=== PATIENT | female | born 1945 | race Caucasian/White ===

== ENCOUNTER 2017-06-17 18:45 | Emergency (ER) | payer MEDICARE, OTHER ==
[~2017-06-17] VITALS: Ht 170.2 cm; Wt 117.9 kg
[2017-06-17 19:44] LABS: BASOPHILS % 0.1 % (0.0-1.0); HEMATOCRIT 29.7 % (34.2-44.1); HEMOGLOBIN 9.5 g/dL (12.0-16.0); LYMPHOCYTES # (AUTO) 0.4 (1.0-3.2); LYMPHOCYTES % 5.2 % (18.0-39.1); MEAN CORPUSCULAR HEMOGLOBIN 30.4 pg (28-32); MEAN CORPUSCULAR VOLUME 94.9 fL (81-99); MONOCYTES # (AUTO) 0.3 (0.2-0.8); MONOCYTES % 4.4 % (4.4-11.3); NEUTROPHILS # (AUTO) 6.9 (2.1-6.9); NEUTROPHILS % 89.5 % (38.7-80.0); PLATELET COUNT 243 x10e3/uL (140-360); RED BLOOD COUNT 3.13 x10e6/uL (3.6-5.1); RED CELL DISTRIBUTION WIDTH 15.9 % (11.7-14.4)
[2017-06-17] MEDS ORDERED: ALBUTEROL/IPRATROPIUM 3 ML NEB NEB ONE (19:45)
[2017-06-17 20:00] LABS: ALANINE AMINOTRANSFERASE 60 IU/L (0-55); ALKALINE PHOSPHATASE 143 IU/L (40-150); ANION GAP 14.3 mmol/L (8-16); BLOOD UREA NITROGEN 11 mg/dL (7-26); BUN/CREATININE RATIO 14 (6-25); CALCIUM 8.9 mg/dL (8.4-10.2); CARBON DIOXIDE 28 mmol/L (22-29); CHLORIDE 99 mmol/L (98-107); CREATINE KINASE 36 IU/L (29-168); CREATININE, SERUM 0.79 mg/dL (0.57-1.11); EST GLOMERULAR FILTRATION RATE > 60 ML/MIN (60-); GLUCOSE 194 mg/dL (74-118); POTASSIUM 3.3 mmol/L (3.5-5.1); SODIUM 138 mmol/L (136-145)
[2017-06-17 20:06] LABS: B-TYPE NATRIURETIC PEPTIDE2 89.3 pg/mL (0-100)
[2017-06-17 20:07] LABS: TROPONIN I 0.064 ng/mL (0-0.300)
--- NOTE | 2017-06-17 20:22 | Diagnostic Imaging Report ---
Two view chest x-ray INDICATION: Shortness of breath, congestion COMPARISON: Chest x-ray 10/29/2008. FINDINGS: The heart is mildly enlarged. There is no evidence of hilar lymphadenopathy. Pulmonary vascular markings are prominent. Lung volumes are lower compared to previous exam. There is mild prominence of the pulmonary interstitium and bilateral perihilar airspace opacities. No consolidation. There is no evidence of focal consolidation or pleural effusion. Evaluation of the osseous structures demonstrates diffuse demineralization. There are healing right and left upper rib fractures. IMPRESSION: Cardiomegaly and vascular congestion. A component of pulmonary edema is suspected. Signed by: Dr. Juma Ellington MD on 06/17/2017 8:18 PM
== END 2017-06-17 22:15 | disposition left against medical advice (07) ==
LOC: ER 18:45
DX: R06.00 Dyspnea, unspecified (principal)
CPT/HCPCS: 36415; 71020; 80053; 82550; 82553; 83605; 83880; 84484; 85025; 87040; 93005; 94640

== ENCOUNTER 2017-08-23 14:45 | Emergency (ER) | payer MEDICARE, OTHER ==
[~2017-08-23] VITALS: Ht 162.6 cm; Wt 90.7 kg
--- OUTSIDE RECORDS SUMMARY | 2017-08-23 14:47 | XMS REPORT ---
Author Author [facility] Address Unknown Phone Unavailable Care Team Providers Care Hearing Screen Coordinator Name Role Phone MARILYN GALVAN Unavailable Unavailable Problems This patient has no known problems. Allergies, Adverse Reactions, Alerts This patient has no known allergies or adverse reactions. Medications This patient has no known medications. Results Test Description Test Time Test Comments Text Results Atomic Results Result Comments CHEST 2 VIEWS [place] [address] Patient Name: ROOPA ERNST MR #: [id number] : 1945 Age/Sex: 71/F Req # : [id number] Adm Physician: Ordered by: YUDY DIXON MD Report # : [id number] Location: ER Room/Bed: Procedure: [id number] DX/CHEST 2 VIEWS Exam Date: Exam Time: REPORT STATUS: Signed Two view chest x-ray INDICATION: Shortness of breath, congestion COMPARISON: Chest x-ray 10/29/2008. FINDINGS: The heart is mildly enlarged. There is no evidence of hilar lymphadenopathy. Pulmonary vascular markings are prominent. Lung volumes are lower compared to previous exam. There is mild prominence of the pulmonary interstitium and bilateral perihilar airspace opacities. No consolidation. There is no evidence of focal consolidation or pleural effusion. Evaluation of the osseous structures demonstrates diffuse demineralization. There are healing right and left upper rib fractures. IMPRESSION: Cardiomegaly and vascular congestion. A component of pulmonary edema is suspected. Signed by: Dr. Jose Ellington MD on 06/17/2017 8:18 PM Dictated By: JOSE ELLINGTON MD 17 Transcribed By: RUBIO on 06/17/172017 COPY TO: YUDY DIXON MD
--- OUTSIDE RECORDS SUMMARY | 2017-08-23 14:47 | XMS REPORT | Clinical Summary ---
Author Author [facility] Address Unknown Phone Unavailable Care Team Providers Care Hub Associate Name Role Phone Asked, Pcp PCP Unavailable Allergies Active Allergy Reactions Severity Noted Date Comments Ibuprofen 06/11/2017 Current Medications Prescription Sig. Disp. Refills Start End Date Status Date citalopram (CeleXA) 40 MG Take 40 mg by mouth Active tablet daily. diphenhydrAMINE Take 25 mg by mouth as Active (BENADRYL) 25 mg tablet needed for sleep. calcium carbonate Take 600 mg by mouth Active (OS-ALINA) 600 mg calcium daily. (1,500 mg) tablet docusate sodium (COLACE) Take 100 mg by mouth as Active 100 MG capsule needed for constipation. esomeprazole (NexIUM) 40 Take 40 mg by mouth Active MG capsule daily. fexofenadine (MICHAEL) Take 180 mg by mouth Active 180 MG tablet daily. fluoride, sodium, (SF Apply 1 application to Active 5000 PLUS) 1.1 % cream teeth daily. fluticasone-salmeterol Inhale 1 puff 2 (two) Active (ADVAIR) 250-50 mcg/dose times a day. DISKUS levothyroxine (SYNTHROID, Take 200 mcg by mouth Active LEVOXYL) 200 mcg tablet every morning. magnesium oxide 500 mg Take 1 tablet by mouth Active tablet daily. metFORMIN (GLUCOPHAGE) Take 1,000 mg by mouth 2 Active 1,000 mg tablet (two) times a day with meals. ondansetron (ZOFRAN) 8 MG Take 8 mg by mouth every Active tablet 8 (eight) hours as needed for nausea or vomiting. pioglitazone (ACTOS) 15 Take 15 mg by mouth Active MG tablet daily. potassium chloride Take 10 mEq by mouth Active (KLOR-CON M10) 10 MEQ CR daily. tablet promethazine (PHENERGAN) Take 25 mg by mouth every Active 25 MG tablet 6 (six) hours as needed for nausea or vomiting. QUEtiapine (SEROquel) 25 Take 25 mg by mouth Active MG tablet nightly. QUEtiapine XR (SEROquel Take 150 mg by mouth Active XR) 150 mg 24 hr tablet nightly. sennosides-docusate Take 1 tablet by mouth Active sodium (SENOKOT-S) 8.6-50 daily. mg per tablet traMADol (ULTRAM) 50 mg Take 50 mg by mouth every Active tablet 6 (six) hours as needed for moderate pain. triamcinolone (KENALOG) Apply 1 application Active 0.1 % cream topically 2 (two) times a day as needed. valACYclovir (VALTREX) Take 500 mg by mouth Active 500 MG tablet daily. zolpidem (AMBIEN) 10 mg Take 10 mg by mouth Active tablet nightly as needed for sleep. aspirin (ECOTRIN) 81 MG Take 81 mg by mouth Active enteric coated tablet daily. albuterol (PROAIR Inhale every 6 (six) Active HFA,PROVENTIL hours as needed for HFA,VENTOLIN HFA) 90 wheezing. mcg/actuation inhaler benzonatate (TESSALON) Take 1 capsule (100 mg 21 capsule 0 06/16/19 Active 100 MG capsule total) by mouth 3 (three) 18 times a day as needed for cough for up to 21 doses. NON FORMULARY Take 1 Dose by mouth. 06/11/19 Discontin POTASSIUM ORAL 18 ued nystatin (MYCOSTATIN) Take 5 mL by mouth 4 473 mL 0 06/16/19 100,000 unit/mL (four) times a day for 7 18 18 suspension days. Swish in mouth guaiFENesin (MUCINEX) 600 Take 1 tablet (600 mg 8 tablet 0 06/16/19 06/20/19 mg tablet extended total) by mouth 2 (two) 18 18 release 12hr times a day for 4 days. montelukast (SINGULAIR) Take 1 tablet (10 mg 30 tablet 0 06/16/19 10 mg tablet total) by mouth nightly 18 18 for 30 days. fluticasone (FLONASE) 50 2 sprays (100 mcg total) 15.8 mL 0 06/17/19 07/17/19 mcg/actuation nasal spray by Each Nare route daily 18 18 for 30 days. levoFLOXacin (LEVAQUIN) Take 1 tablet (500 mg 4 tablet 0 06/16/19 500 MG tablet total) by mouth daily for 18 18 4 days. Active Problems Problem Noted Date Dehydration 06/14/2017 Influenza 06/11/2017 Encounters Date Type Specialty Care Team Description 06/11/2017 [facility] Internal Medicine Wally Valentino MD Influenza (Primary Dx); - Encounter Abelardo Millan MD Dehydration 06/16/2017 after 08/22/2016 Family History Medical History Relation Name Comments Ovarian cancer Mother Arthritis Sister Cancer Sister Relation Name Status Comments Mother Sister Social History Tobacco Use Types Packs/Day Years Used Date Never Smoker Smokeless Tobacco: Never Used Alcohol Use Drinks/Week oz/Week Comments No socially Sex Assigned at Date Recorded Not on file Last Filed Vital Signs Vital Sign Reading Time Taken Blood Pressure 151/66 06/16/2017 10:39 AM [facility] Pulse 101 06/16/2017 11:41 AM [facility] Temperature 36.4 C (97.5 F) 06/16/2017 10:39 AM [facility] Respiratory Rate 15 06/16/2017 11:41 AM [facility] Oxygen Saturation 98% 06/16/2017 11:31 AM [facility] Inhaled Oxygen - - Concentration Weight 118 kg (260 lb) 06/11/2017 4:54 PM [facility] Height 167.6 cm (5' 6") 06/11/2017 4:54 PM [facility] Body Mass Index 41.97 06/11/2017 4:54 PM [facility] Plan of Treatment Health Maintenance Due Date Last Done Comments COLONOSCOPY 09/30/1995 MAMMOGRAM 09/30/1995 ZOSTER VACCINE 2005 PNEUMOCOCCAL 2010 POLYSACCHARIDE VACCINE AGE 65 AND OVER PNEUMOCOCCAL-13 2010 INFLUENZA VACCINE 12/22/2017 Procedures Procedure Name Priority Date/Time Associated Diagnosis Comments EEG AWAKE/DROWSY LESS Routine 06/14/2017 Results for this THAN 41 MIN 3:00 PM [facility] procedure are in the results section. ECHOCARDIOGRAM 2D Routine 06/14/2017 Results for this COMPLETE W MMODE SPECTRAL 2:15 PM [facility] procedure are in the COLOR DOPPLER ([id number]) results section. after 08/22/2016 Results * Total iron binding capacity (06/16/2017 11:24 AM) Component Value Ref Range Iron level 110 37 - 145 ug/dL Iron binding capacity 179 (L) 200 - 400 ug/dL % Saturation 61.5 (H) 15.0 - 38.0 % Specimen Performing Laboratory Plasma specimen [facility] DEPARTMENT PATHOLOGY AND [facility] [id number] [place] [address] [place] [address] * Folate level (06/16/2017 11:24 AM) Component Value Ref Range Folate 3.9 (L) 4.6 - 34.8 ng/mL Specimen Performing Laboratory Serum [facility] PATHOLOGY AND [facility] [id number] [place] [address] [place] [address] * Vitamin B12 level (06/16/2017 11:24 AM) Component Value Ref Range Vitamin B12 877 211 - 946 pg/mL Comment: Significant overlap exists between normal and deficiency states. However, most patients with deficiencies will have Serum B12 <200 pg/mL. Specimen Performing Laboratory Serum [facility] PATHOLOGY [address] [place] [address] * POC glucose (06/16/2017 11:06 AM) Only the most recent of 18 results within the time period is included. Component Value Ref Range POC glucose 292 (H) 65 - 99 mg/dL Comment: Meter ID: [id number] [employer] Specialist: Baltazar Granados Specimen Performing Laboratory [facility] DEPARTMENT PATHOLOGY AND [address] [place] [address] * XR Chest 1 Vw Portable (06/15/2017 6:25 AM) Only the most recent of 3 results within the time period is included. Specimen Performing Laboratory [facility] [address] [place] [address] Narrative Examination:XR CHEST 1 VW PORTABLE Clinical history:"SHORTNESS OF BREATH" Comparison:06/14/17 IMPRESSION: There are no new alveolar opacities within either lung.Bibasilar opacities consistent with atelectasis versus small infiltrates appear unchanged. No pneumothoraces are identified. The cardiomediastinal silhouette is unchanged. The bones of the chest are unchanged. [id number] Procedure Note Hm Interface, Radiology Results Incoming - 06/15/2017 7:32 AM B[facility]ACKER Examination: XR CHEST 1 VW PORTABLE Clinical history: "SHORTNESS OF BREATH" Comparison: 06/14/17 IMPRESSION: There are no new alveolar opacities within either lung. Bibasilar opacities consistent with atelectasis versus small infiltrates appear unchanged. No pneumothoraces are identified. The cardiomediastinal silhouette is unchanged. The bones of the chest are unchanged. [facility]-[id number] * Smear review (06/15/2017 4:24 AM) Component Value Ref Range Platelet slide review Eda adequate Anisocytosis Moderate Tear drop cells Moderate (A) Elliptocytes Occasional Specimen Performing Laboratory [facility] DEPARTMENT OF PATHOLOGY AND GENOMIC MEDICINE [address] [place] [address] * Procalcitonin (06/15/2017 4:24 AM) Component Value Ref Range Procalcitonin 0.18 (H) <=0.10 ng/mL Comment: INTERPRETIVE INFORMATION: Procalcitonin PCT greater than 2.00 ng/mL: PCT levels above 2.00 ng/mL on the first day of ICU admission represent a high risk for progression to severe sepsis and/or septic shock. PCT less than 0.50 ng/mL: PCT levels below 0.50 ng/mL on the first day of ICU admission represent a low risk for progression to severe sepsis and/or septic shock. If the PCT measurement is performed shortly after the systemic infection process has started (usually less than 6 hours), these values may still be low. As various non-infectious conditions are known to induce PCT as well, PCT levels between 0.5 ng/mL and 2.0 ng/mL should be reviewed carefully to take into account the specific clinical back-ground and condition(s) of the individual patient. Performed by [facility], [address] [place] [id number] [email or web address] Etienne Price MD - Lab. Director Specimen Performing Laboratory Serum [facility] [address] [place] [address] * Estimated GFR (06/15/2017 4:24 AM) Only the most recent of 5 results within the time period is included. Component Value Ref Range GFR Non Af Amer 82 mL/min/1.73 m2 GFR Af Amer >90 mL/min/1.73 m2 Comment: Chronic kidney disease: <60 mL/min/1.73m2 Kidney failure: <15 mL/min/1.73m2 The estimated GFR is calculated from the IDMS-traceable Modification of Diet in Renal Disease Equation. The accuracy of the calculation is poor when the creatinine is normal. Calculated values >90 mL/min/1.73m2 are not reported. This equation has not been validated in children (<18 years), women, the elderly (>70 years), or ethnic groups other than Caucasians and Americans. Specimen Performing Laboratory Plasma specimen [facility] OF PATHOLOGY AND GENOMIC MEDICINE [address] [place] [address] * CBC with platelet and differential (06/15/2017 4:24 AM) Only the most recent of 5 results within the time period is included. Component Value Ref Range WBC 5.20 4.50 - 11.00 k/uL RBC 2.88 (L) 4.20 - 5.50 m/uL HGB 8.8 (L) 12.0 - 16.0 g/dL HCT 26.4 (L) 37.0 - 47.0 % MCV 91.7 82.0 - 100.0 fL MCH 30.6 27.0 - 34.0 pg MCHC 33.3 31.0 - 37.0 g/dL RDW - SD 51.3 37.0 - 55.0 fL MPV 11.5 8.8 - 13.2 fL Platelet count 171 150 - 400 k/uL Nucleated RBC 0.00 /100 WBC Neutrophils 90.7 (H) 39.0 - 69.0 % Lymphocytes 4.6 (L) 25.0 - 45.0 % Monocytes 3.5 0.0 - 10.0 % Eosinophils 0.0 0.0 - 5.0 % Basophils 0.0 0.0 - 1.0 % Immature granulocytes 1.2 (H)Comment: "Immature granulocytes" 0.0 - 1.0 % (promyelocytes, myelocytes, metamyelocytes) Specimen Performing Laboratory Blood [facility] DEPARTMENT OF PATHOLOGY AND GENOMIC MEDICINE [address] [place] [address] * Basic metabolic panel (06/15/2017 4:24 AM) Only the most recent of 4 results within the time period is included. Component Value Ref Range Sodium 132 (L) 135 - 148 mEq/L Potassium 3.8 3.5 - 5.0 mEq/L Chloride 93 (L) 98 - 112 mEq/L CO2 25 24 - 31 mEq/L Anion gap 14 7 - 15 mEq/L Comment: Starting from August , anion gap calculation no longer incorporates potassium. Please note the change. BUN 12 8 - 23 mg/dL Creatinine 0.7 0.5 - 0.9 mg/dL Glucose 236 (H) 65 - 99 mg/dL Calcium 8.6 (L) 8.8 - 10.2 mg/dL Specimen Performing Laboratory Plasma specimen [facility] DEPARTMENT OF PATHOLOGY AND GENOMIC MEDICINE [address] [place] [address] * EEG (routine) (06/14/2017 3:00 PM) Specimen Performing Laboratory [facility] DEPARTMENT OF PATHOLOGY AND GENOMIC MEDICINE [address] [place] [address] Narrative ROUTINE EEG REPORT Patient Name: Roopa Gillespie Date of : 1945 Gender: female Date of Procedure: 06/14/17 Indication deiminished LOC and intontinence of urine and feces Technical Summary Technique:Modified international 10/20 system of EEG electrode placement was used. Awake Recording: posterior dominant rhythm -7-8 hz low amplitude and disorganized w/ intermittent higher amplitude slow waves in the theta frecquency interrupting the rhythm Anterior beta frequencies are 22-28 hz <10mV present but often obstructed by muscle activity Intermittent slowing is seen several times during this EEG 4-7 hz overriding the normal rythms . No seizures, sharp waves or focal dysfunction is captured Photic Stimulation: no abnormal driving is captured Impression Abnormal level 1 Mild encephalopathy w/ posteriod background slowing Mild diffuse encephalopathy No evidence of seizure ICD10 Code/Diagnosis: g40 . * Echocardiogram complete w contrast and 3D if needed (06/14/2017 2:15 PM) Component Value Ref Range AoV Area, Vmax 1.72 cm2 AoV Area, VTI 2.02 cm2 AoV Mean PG 6.31 mmHg AoV Peak PG 14.41 mmHg AoV Vmax 1.90 m/s AoV VTI 0.28 m IVS,d 1.24 (A) 0.6 - 1.2 cm LV,d 4.81 cm LV EF,A2C 46.04 % LV EF,A4C 62.99 % LV EF,BP 55.24 % Moses Watton,d A2C 7.71 cm Moses Watton,d A4C 7.83 cm Moses Watton,s A2C 6.41 cm Moses Watton,s A4C 6.56 cm LV,s 3.42 cm LV SV,A2C 24.80 % LV SV,A4C 44.25 % LV Vol,d A2C 53.86 mL LV Vol,d A4C 70.26 ml LV Vol,d BP 61.78 ml LV Vol,s A2C 29.06 mL LV Vol,s A4C 26.00 ml LV Vol,s BP 27.65 nl LVOT Diam,S 1.95 cm LVOT Vmax 1.08 m/s LVOT VTI 0.19 m LVPWD,d 0.80 cm RVSP (TR) 27.63 mmHg TR Vpeak 2.38 mm/s MV E A ratio 0.73 mmHg TR pk grad 22.63 mmHg E wave decelartion time 186.05 msec MV Peak A Blake 1.36 m/s MV valve area p 1/2 5.28 cm2 method MV Peak E Blake 0.99 m/s MV stenosis pressure 1/2 41.69 ms time AV LVOT peak gradient 4.69 mmHg RVSP 27.63 mmHg LV SYS VOL 48.14 ml LV OAKES VOL 108.11 ml LV SV Teich 2D 59.97 ml LVOT SI 25.71 ml/m2 AoV Cusp sep 1.80 AoV Vmn 1.18 IVS s 2D 1.27 LA Ao Ratio Mmode 1.41 LVOT Vmn 0.73 Pt Size 167.64 Pt Wt 117.93 Ao root annulus 3.12 cm PV AT 83.04 msec LVOT mean grad 2.49 mmHg LVPW s PLAX 1.52 cm MV Decel slope 5.34 m/s2 LA Vol MOD A4C 60.12 ml Velocity Ratio (V1/V2) 0.57 m/s EF 55.47 % E/A ratio 0.73 LVOT area 2.98 cm2 RA pressure 5.00 mmHg LA diam s 4.40 cm Aortic Root 3.10 cm DE End Oakes Grad 4.94 DE End Diat Blake 1.11 D E excurs 2.10 E f slope 0.05 E prime lat 0.10 E clifton sept 0.08 PV acc T slope 10.10 Specimen Performing Laboratory [facility] [address] [place] [address] Narrative The left ventricle chamber size is normal. Left Ventricular ejection fraction is 55 - 60%. No pericardial effusion Spectral Doppler shows impaired relaxation pattern of left ventricular diastolic filling. * Magnesium level (06/14/2017 4:30 AM) Only the most recent of 2 results within the time period is included. Component Value Ref Range Magnesium 1.6 1.6 - 2.4 mg/dL Specimen Performing Laboratory Plasma specimen [facility] DEPARTMENT OF PATHOLOGY AND GENOMIC MEDICINE [address] [place] [address] * Respiratory pathogen panel (06/12/2017 9:00 PM) Component Value Ref Range Respiratory pathogen Negative for all pathogens tested: panel Negative for Adenovirus Negative for Coronavirus HKU1 Negative for Coronavirus NL63 Negative for Coronavirus 229E Negative for Coronavirus OC43 Negative for Human Metapneumovirus Negative for Rhinovirus/Enterovirus Negative for Influenza A Negative for Influenza A/H1 Negative for Influenza A/H3 Negative for Influenza A/H1-2009 Negative for Influenza B Negative for Parainfluenza Virus 1 Negative for Parainfluenza Virus 2 Negative for Parainfluenza Virus 3 Negative for Parainfluenza Virus 4 Negative for Respiratory Syncytial Virus Negative for Bordetella pertussis Negative for Chlamydophila pneumoniae Negative for Mycoplasma pneumoniae This real-time PCR assay detects the presence of nucleic acids (RNA or DNA) for the respiratory pathogens listed. A result of "Not-detected" does not exclude the possibility of the presence of one or more pathogens at concentrations less than the detectable limits of the assay. Comment: Specimen Information Specimen Source: Nares Specimen Site: Right Specimen Performing Laboratory Nares - Right [facility] DEPARTMENT OF PATHOLOGY AND GENOMIC MEDICINE [address] [place] [address] * Hemoglobin A1c (06/12/2017 1:35 PM) Component Value Ref Range Hemoglobin A1C 6.4 (H) 4.0 - 6.0 % Comment: Less than 6% - Goal of therapy for Type II Diabetes Less than 7%- Goal of therapy for Type I Diabetes Less than 8%- Acceptable control for Type I or Type II Diabetes Greater than 8%- Unacceptable control; action indicated. (A DA94) Specimen Performing Laboratory Blood [facility] DEPARTMENT OF PATHOLOGY AND GENOMIC MEDICINE [address] [place] [address] * ECG ED Preliminary Interpretation - NOT AN ORDER (06/12/2017 6:24 AM) Galindo Valentino MD 06/12/20176:24 AM ECG ED Preliminary Interpretation - Not an Order Performed by: WALLY VALENTINO Authorized by: WALLY VALENTINO ECG reviewed by ED Physician in the absence of a bank analyst: yes Interpretation: Interpretation: non-specific Rate: ECG rate:97 ECG rate assessment: normal Rhythm: Rhythm: sinus rhythm Conduction: Conduction: abnormal Abnormal conduction: incomplete RBBB T waves: T waves: non-specific Other findings: Other findings: prolonged qTc interval * Troponin (06/11/2017 10:55 PM) Only the most recent of 2 results within the time period is included. Component Value Ref Range Troponin <0.300 0.000 - 0.300 ng/mL Comment: 0.30 - 1.49 ng/ml May indicate increased risk of acute coronary syndrome. >=1.5 ng/ml Consistent with acute myocardial infarction. The diagnostic value of a single normal or non-diagnostic result is questionable. Serial samples at 2-6 hour intervals are required to rule out acute myocardial injury. Specimen Performing Laboratory Plasma specimen [facility] DEPARTMENT OF PATHOLOGY AND GENOMIC MEDICINE [address] [place] [address] * ECG 12 lead (06/11/2017 6:33 PM) Component Value Ref Range Ventricular rate 97 Atrial rate 97 DE interval 142 QRSD interval 110 QT interval 402 QTC interval 510 P axis 1 76 QRS axis 1 -43 T wave axis 83 EKG impression Normal sinus rhythm-Left axis deviation-Incomplete right bundle branch block-Left ventricular hypertrophy with repolarization abnormality-Prolonged QT-Abnormal ECG-No previous ECGs available- Specimen Performing Laboratory [facility] [address] [place] [address] * Partial thromboplastin time, activated (06/11/2017 6:10 PM) Component Value Ref Range PTT 30.9 23.0 - 36.0 sec Comment: PTT therapeutic range for unfractionated heparin is 61.0-112.0 seconds which corresponds to Anti-Xa 0.3-0.7 U/ml. Specimen Performing Laboratory Blood [facility] OF PATHOLOGY AND [facility] [address] [place] [address] * Prothrombin time with INR (06/11/2017 6:10 PM) Component Value Ref Range Prothrombin time 17.7 (H) 12.0 - 15.0 sec INR 1.4 Comment: The International Normalized Ratio (INR) is a therapeutic monitoring tool for patients who are stable on oral anticoagulant therapy. An INR of 2.0-3.0 is suggested for deep vein thrombosis/pulmonary embolism. Specimen Performing Laboratory Blood [facility] OF PATHOLOGY AND [facility] [address] [place] [address] * Influenza antigen (06/11/2017 6:10 PM) Component Value Ref Range Influenza antigen Positive for Influenza B antigen. (A) Comment: Specimen Information Specimen Source: Nares Specimen Site: Right Specimen Performing Laboratory Nares - Right [facility] OF PATHOLOGY AND [facility] [address] [place] [address] * Comprehensive metabolic panel (06/11/2017 6:10 PM) Component Value Ref Range Sodium 136 135 - 148 mEq/L Potassium 3.2 (L) 3.5 - 5.0 mEq/L Chloride 95 (L) 98 - 112 mEq/L CO2 26 24 - 31 mEq/L Anion gap 15 7 - 15 mEq/L Comment: Starting from August , anion gap calculation no longer incorporates potassium. Please note the change. BUN 10 8 - 23 mg/dL Creatinine 0.7 0.5 - 0.9 mg/dL Glucose 124 (H) 65 - 99 mg/dL Calcium 8.5 (L) 8.8 - 10.2 mg/dL Protein 5.7 (L) 6.3 - 8.3 g/dL Comment: [place] 4.6-7.0 g/dL 1 week 4.4-7.6 g/dL 7 months-1year 5.1-7.3 g/dL 1-2 years 5.6-7.5 g/dL >3 years 6.0-8.0 g/dL 18-150 6.3-8.3 g/dL Albumin 3.1 (L) 3.5 - 5.0 g/dL A/G ratio 1.2 0.7 - 3.8 Alkaline phosphatase 136 (H) 35 - 104 U/L AST 16 10 - 35 U/L ALT 12 5 - 50 U/L Total bilirubin 0.7 0.0 - 1.2 mg/dL Specimen Performing Laboratory Plasma specimen [facility] DEPARTMENT OF PATHOLOGY AND GENOMIC MEDICINE [address] [place] [address] * CT Head Wo Contrast (06/11/2017 5:58 PM) Specimen Performing Laboratory [facility] [address] [place] [address] Narrative EXAMINATION:CT HEAD WO CONTRAST CLINICAL HISTORY:TIA COMPARISON:None. TECHNIQUE: Noncontrast head CT performed using radiation dose reduction techniques.Technical factors are evaluated and adjusted to ensure appropriate moderation of exposure.Automated dose management technology is applied to adjust radiation exposure while achieving a diagnostic quality image. FINDINGS: No evidence of acute intracranial hemorrhage, mass, mass effect, midline shift, or acute infarct. Few areas of periventricular white matter hypoattenuation likely reflecting mild chronic microvascular ischemic changes. Ventricles and sulci are normal in appearance for patient's age.Mild arteriosclerosis of the cavernous internal carotid arteries. Basal cisterns are clear. Diffuse lytic lesions throughout the visualized calvarium. Status post bilateral lens extractions. Mild to moderate sinus inflammatory changes with possible air-fluid levels in the maxillary and sphenoid sinuses. Small right and trace left mastoid effusions. IMPRESSION: 1. No CT evidence of acute intracranial abnormality. 2. Mild to moderate sinus inflammatory changes with possible air-fluid levels in the maxillary and sphenoid sinuses. Correlate for acute sinusitis. 3. Diffuse lytic lesions throughout the calvarium and visualized osseous structures consistent with history of multiple myeloma. [id number] Procedure Note Interface, Radiology Results Incoming - 06/11/2017 6:06 PM BALL [facility]ER EXAMINATION: CT HEAD WO CONTRAST CLINICAL HISTORY: TIA COMPARISON: None. TECHNIQUE: Noncontrast head CT performed using radiation dose reduction techniques. Technical factors are evaluated and adjusted to ensure appropriate moderation of exposure. Automated dose management technology is applied to adjust radiation exposure while achieving a diagnostic quality image. FINDINGS: No evidence of acute intracranial hemorrhage, mass, mass effect, midline shift, or acute infarct. Few areas of periventricular white matter hypoattenuation likely reflecting mild chronic microvascular ischemic changes. Ventricles and sulci are normal in appearance for patient's age. Mild arteriosclerosis of the cavernous internal carotid arteries. Basal cisterns are clear. Diffuse lytic lesions throughout the visualized calvarium. Status post bilateral lens extractions. Mild to moderate sinus inflammatory changes with possible air-fluid levels in the maxillary and sphenoid sinuses. Small right and trace left mastoid effusions. IMPRESSION: 1. No CT evidence of acute intracranial abnormality. 2. Mild to moderate sinus inflammatory changes with possible air-fluid levels in the maxillary and sphenoid sinuses. Correlate for acute sinusitis. 3. Diffuse lytic lesions throughout the calvarium and visualized osseous structures consistent with history of multiple myeloma. [id number] after 08/22/2016 Insurance Payer Benefit Subscriber ID Type Phone Address Plan / Group MEDICARE MEDICARE xxxxxxxxxx [place] A [place] B AARP AARP xxxxxxxxxxx Commercial SUPPLEMENT [place] [id number]
[2017-08-23] MEDS ORDERED: ONDANSETRON HCL INJ 2 MG/ML VIAL IV STA (15:49)
[2017-08-23] MEDS ORDERED: FAMOTIDINE 20 MG/2 ML VIAL IV STA (15:49)
[2017-08-23] MEDS ORDERED: FLUCONAZOLE 200 MG/100 ML 100 ML IV ONE (16:00)
[2017-08-23] MEDS ORDERED: LOPERAMIDE HCL 2 MG CAP PO ONE (16:00)
[2017-08-23] MEDS ORDERED: SODIUM CHLORIDE 0.9% 1000ML 1,000 ML IV ONE (16:00)
[2017-08-23 16:05] LABS: BASOPHILS % 0.1 % (0.0-1.0); HEMATOCRIT 33.5 % (34.2-44.1); LYMPHOCYTES # (AUTO) 0.5 (1.0-3.2); LYMPHOCYTES % 3.6 % (18.0-39.1); MEAN CORPUSCULAR HEMOGLOBIN 30.8 pg (28-32); MEAN CORPUSCULAR HGB CONC 32.8 g/dL (31-35); MEAN CORPUSCULAR VOLUME 93.8 fL (81-99); MONOCYTES # (AUTO) 0.4 (0.2-0.8); MONOCYTES % 2.6 % (4.4-11.3); NEUTROPHILS # (AUTO) 13.4 (2.1-6.9); NEUTROPHILS % 93.1 % (38.7-80.0); PLATELET COUNT 298 x10e3/uL (140-360); RED BLOOD COUNT 3.57 x10e6/uL (3.6-5.1); RED CELL DISTRIBUTION WIDTH 22.5 % (11.7-14.4)
[2017-08-23 16:27] LABS: ALBUMIN 2.3 g/dL (3.5-5.0); ALBUMIN/GLOBULIN RATIO 0.8 (0.8-2.0); ANION GAP 23.6 mmol/L (8-16); CALCIUM 10.5 mg/dL (8.4-10.2); CREATININE, SERUM 1.13 mg/dL (0.57-1.11); MAGNESIUM 1.6 MG/DL (1.3-2.1); POTASSIUM 3.6 mmol/L (3.5-5.1)
[2017-08-23] MEDS ORDERED: TRAMADOL HCL 50 MG TAB PO ONE (16:45)
[2017-08-23] MEDS ORDERED: ONDANSETRON HCL INJ 2 MG/ML VIAL IV PRN (19:15)
[2017-08-23] MEDS: SODIUM CHLORIDE 0.9% 1000ML 1,000 ML IV SCH (19:39)
--- OUTSIDE RECORDS SUMMARY | 2017-08-23 20:08 | XMS REPORT | Clinical Summary ---
Author Author William [facility] Organization [facility] Address Unknown Phone Unavailable Care Team Providers Care Marine Electrician Name Role Phone Asked, Pcp PCP Unavailable [...] Date Type Specialty Care Team Description 06/11/2017 [facility] Internal Medicine Wally Valentino MD Influenza [...] Taken Blood Pressure 151/66 06/16/2017 10:39 AM STAPLER MACHINE Pulse 101 06/16/2017 11:41 AM STAPLER MACHINE Temperature 36.4 C (97.5 F) 06/16/2017 10:39 AM STAPLER MACHINE Respiratory Rate 15 06/16/2017 11:41 AM STAPLER MACHINE Oxygen Saturation 98% 06/16/2017 11:31 AM STAPLER MACHINE Inhaled Oxygen - - Concentration Weight 118 kg (260 lb) 06/11/2017 4:54 PM STAPLER MACHINE Height 167.6 cm (5' 6") 06/11/2017 4:54 PM STAPLER MACHINE Body Mass Index 41.97 06/11/2017 4:54 PM STAPLER MACHINE Plan of Treatment Health Maintenance Due Date Last Done Comments COLONOSCOPY 09/30/1995 MAMMOGRAM 09/30/1995 ZOSTER VACCINE 2005 PNEUMOCOCCAL 2010 POLYSACCHARIDE VACCINE AGE 65 AND OVER PNEUMOCOCCAL-13 2010 INFLUENZA VACCINE 12/22/2017 Procedures Procedure Name Priority Date/Time Associated Diagnosis Comments EEG AWAKE/DROWSY LESS Routine 06/14/2017 Results for this THAN 41 MIN 3:00 PM STAPLER MACHINE procedure are in the results section. ECHOCARDIOGRAM 2D Routine 06/14/2017 Results for this COMPLETE W MMODE SPECTRAL 2:15 PM STAPLER MACHINE procedure are in the COLOR DOPPLER (07797) results section. after 08/22/2016 Results * Total iron binding capacity (06/16/2017 11:24 AM) Component Value Ref Range Iron level 110 37 - 145 ug/dL Iron binding capacity 179 (L) 200 - 400 ug/dL % Saturation 61.5 (H) 15.0 - 38.0 % Specimen Performing Laboratory Plasma specimen [facility] DEPARTMENT PATHOLOGY AND [facility] [id number] [place] [address] [place] [address] * Folate level (06/16/2017 11:24 AM) Component Value Ref Range Folate 3.9 (L) 4.6 - 34.8 ng/mL Specimen Performing Laboratory Serum [facility] PATHOLOGY AND [facility] [address] [place] [address] [place] [address] * Vitamin B12 level (06/16/2017 11:24 AM) Component Value Ref Range Vitamin B12 877 211 - 946 pg/mL Comment: Significant overlap exists between normal and deficiency states. However, most patients with deficiencies will have Serum B12 <200 pg/mL. Specimen Performing Laboratory Serum [facility] PATHOLOGY [address] [place] [address] * POC glucose (06/16/2017 11:06 AM) Only the most recent of 18 results within the time period is included. Component Value Ref Range POC glucose 292 (H) 65 - 99 mg/dL Comment: Meter ID: [id number] [employer]: Baltazar Granados Specimen Performing Laboratory [facility] DEPARTMENT PATHOLOGY AND [address] [place] [address] * XR Chest 1 Vw Portable (06/15/2017 6:25 AM) Only the most recent of 3 results within the time period is included. Specimen Performing Laboratory [facility] [address] [place] [address] Narrative Examination:XR CHEST 1 VW PORTABLE Clinical history:"SHORTNESS OF BREATH" Comparison:06/14/17 IMPRESSION: There are no new alveolar opacities within either lung.Bibasilar opacities consistent with atelectasis versus small infiltrates appear unchanged. No pneumothoraces are identified. The cardiomediastinal silhouette is unchanged. The bones of the chest are unchanged. [id number] Procedure Note Hm Interface, Radiology Results Incoming - 06/15/2017 7:32 AM STAPLER MACHINE Examination: XR CHEST 1 VW PORTABLE Clinical history: "SHORTNESS OF BREATH" Comparison: 06/14/17 IMPRESSION: There are no new alveolar opacities within either lung. Bibasilar opacities consistent with atelectasis versus small infiltrates appear unchanged. No pneumothoraces are identified. The cardiomediastinal silhouette is unchanged. The bones of the chest are unchanged. [id number] * Smear review (06/15/2017 4:24 AM) Component Value Ref Range Platelet slide review Eda adequate Anisocytosis Moderate Tear drop cells Moderate (A) Elliptocytes Occasional Specimen Performing Laboratory [facility] DEPARTMENT OF PATHOLOGY AND GENOMIC MEDICINE [address] [address] * Procalcitonin (06/15/2017 4:24 AM) Component Value [...] condition(s) of the individual patient. Performed by [facility], [address] [place] [address] [id number] [email or web address], Etienne Price MD - Lab. Director Specimen Performing Laboratory Serum [facility] [address] [place] [id number] * Estimated GFR (06/15/2017 4:24 AM) Only [...] and Americans. Specimen Performing Laboratory Plasma specimen [facility] OF PATHOLOGY AND GENOMIC MEDICINE [address] [place] [address] * CBC with platelet and differential (06/15/2017 [...] (promyelocytes, myelocytes, metamyelocytes) Specimen Performing Laboratory Blood [facility] DEPARTMENT OF PATHOLOGY AND GENOMIC MEDICINE [address] [place] [address] * Basic metabolic panel (06/15/2017 4:24 AM) [...] 10.2 mg/dL Specimen Performing Laboratory Plasma specimen [facility] DEPARTMENT OF PATHOLOGY AND GENOMIC MEDICINE [address] [place] [address] * EEG (routine) (06/14/2017 3:00 PM) Specimen Performing Laboratory [facility] DEPARTMENT OF PATHOLOGY AND GENOMIC MEDICINE [address] [place] [address] Narrative ROUTINE EEG REPORT Patient Name: Roopa [...] 62.99 % LV EF,BP 55.24 % Moses Warrenton,d A2C 7.71 cm Moses Warrenton,d A4C 7.83 cm Moses Warrenton,s A2C 6.41 cm Moses Warrenton,s A4C 6.56 cm LV,s 3.42 cm LV [...] s 4.40 cm Aortic Root 3.10 cm WI End Oakes Grad 4.94 WI End Diat Blake 1.11 D E excurs 2.10 E f slope 0.05 E prime lat 0.10 E clifton sept 0.08 PV acc T slope 10.10 Specimen Performing Laboratory [facility] [address] [place] [address] Narrative The left ventricle chamber size is [...] 2.4 mg/dL Specimen Performing Laboratory Plasma specimen [facility] DEPARTMENT OF PATHOLOGY AND GENOMIC MEDICINE [address] [place] [address] * Respiratory pathogen panel (06/12/2017 9:00 PM) [...] Right Specimen Performing Laboratory Nares - Right [facility] DEPARTMENT OF PATHOLOGY AND GENOMIC MEDICINE [address] [place] [address] * Hemoglobin A1c (06/12/2017 1:35 PM) Component [...] indicated. (A DA94) Specimen Performing Laboratory Blood [facility] DEPARTMENT OF PATHOLOGY AND GENOMIC MEDICINE [address] [place] [address] * ECG ED Preliminary Interpretation - NOT AN ORDER (06/12/2017 6:24 AM) Galindo Valentino MD 06/12/20176:24 AM ECG ED Preliminary Interpretation - Not an Order Performed by: WALLY VALENTINO Authorized by: WALLY VALENTINO ECG reviewed by ED Physician in the absence of a women's ministry director: yes Interpretation: Interpretation: non-specific Rate: ECG rate:97 [...] myocardial injury. Specimen Performing Laboratory Plasma specimen [facility] DEPARTMENT OF PATHOLOGY AND GENOMIC MEDICINE [address] [place] [address] * ECG 12 lead (06/11/2017 6:33 PM) Component Value Ref Range Ventricular rate 97 Atrial rate 97 WI interval 142 QRSD interval 110 QT interval 402 QTC interval 510 P axis 1 76 QRS axis 1 -43 T wave axis 83 EKG impression Normal sinus rhythm-Left axis deviation-Incomplete right bundle branch block-Left ventricular hypertrophy with repolarization abnormality-Prolonged QT-Abnormal ECG-No previous ECGs available- Specimen Performing Laboratory [facility] [address] [place] [address] * Partial thromboplastin time, activated (06/11/2017 6:10 PM) Component Value Ref Range PTT 30.9 23.0 - 36.0 sec Comment: PTT therapeutic range for unfractionated heparin is 61.0-112.0 seconds which corresponds to Anti-Xa 0.3-0.7 U/ml. Specimen Performing Laboratory Blood [facility] OF PATHOLOGY AND [facility] [address] [place] [address] * Prothrombin time with INR (06/11/2017 6:10 PM) Component Value Ref Range Prothrombin time 17.7 (H) 12.0 - 15.0 sec INR 1.4 Comment: The International Normalized Ratio (INR) is a therapeutic monitoring tool for patients who are stable on oral anticoagulant therapy. An INR of 2.0-3.0 is suggested for deep vein thrombosis/pulmonary embolism. Specimen Performing Laboratory Blood [facility] OF PATHOLOGY AND [facility] [address] [place] [address] * Influenza antigen (06/11/2017 6:10 PM) Component Value Ref Range Influenza antigen Positive for Influenza B antigen. (A) Comment: Specimen Information Specimen Source: Nares Specimen Site: Right Specimen Performing Laboratory Nares - Right [facility] OF PATHOLOGY AND [facility] [address] [place] [address] * Comprehensive metabolic panel (06/11/2017 6:10 PM) [...] 5.7 (L) 6.3 - 8.3 g/dL Comment: [employer] 4.6-7.0 g/dL 1 week 4.4-7.6 g/dL 7 [...] 1.2 mg/dL Specimen Performing Laboratory Plasma specimen [facility] DEPARTMENT OF PATHOLOGY AND GENOMIC MEDICINE [address] [place] [address] * CT Head Wo Contrast (06/11/2017 5:58 PM) Specimen Performing Laboratory [facility] [address] [place] [address] Narrative EXAMINATION:CT HEAD WO CONTRAST CLINICAL HISTORY:TIA [...] structures consistent with history of multiple myeloma. [id number] Procedure Note Interface, Radiology Results Incoming - 06/11/2017 6:06 PM STAPLER MACHINE EXAMINATION: CT HEAD WO CONTRAST CLINICAL HISTORY: [...] structures consistent with history of multiple myeloma. [id number] after 08/22/2016 Insurance Payer Benefit Subscriber ID Type Phone Address Plan / Group MEDICARE MEDICARE xxxxxxxxxx Medicare [place] PART A AND B AARP AARP xxxxxxxxxxx Commercial SUPPLEMENT [place] [id number]
[2017-08-23 21:29] LABS: CLARITY,URINE SL CLOUDY (CLEAR); COLOR,URINE AMBER (YELLOW)
[2017-08-23 21:30] LABS: BILIRUBIN,URINE 2+ (NEGATIVE); KETONES,URINE NEGATIVE (NEGATIVE); LEUKOCYTE ESTERASE ,URINE 2+ (NEGATIVE); NITRITE,URINE NEGATIVE (NEGATIVE); PROTEIN,URINE DIPSTICK TRACE (NEGATIVE); URINE UROBILINOGEN 4 mg/dL (0.2 - 1)
[2017-08-23 21:39] LABS: BACTERIA,URINE MANY /HPF; EPITHELIAL CELLS,URINE FEW /LPF; MUCUS,URINE FEW (RARE); WBC,URINE (MAN) 21-50 /HPF (0-5)
[2017-08-23] MEDS ORDERED: AMBIEN10 MG PO (22:19)
[2017-08-23] MEDS ORDERED: CELEXA40 MG PO (22:20)
[2017-08-23] MEDS ORDERED: CALCIUM CARBON500 MG PO (22:20)
[2017-08-23] MEDS ORDERED: DIFLUCAN100 MG PO (22:21)
[2017-08-23] MEDS ORDERED: DOCUSATE SODIU100 MG PO (22:21)
[2017-08-23] MEDS ORDERED: FEXOFENADINE H180 MG PO (22:22)
[2017-08-23] MEDS ORDERED: FAMOTIDINE20 MG PO (22:22)
[2017-08-23] MEDS ORDERED: REMERON15 MG PO (22:23)
[2017-08-23] MEDS ORDERED: LEVOTHYROXINE200 MCG PO (22:23)
[2017-08-23] MEDS ORDERED: ULTRAM50 MG PO (22:24)
[2017-08-23] MEDS ORDERED: ZOFRAN ODT4 MG PO (22:24)
[2017-08-23] MEDS ORDERED: MEGACE ES625 MG/5 M PO (22:25)
[2017-08-23] MEDS ORDERED: MIRTAZAPINE 15 MG TAB PO SCH (22:41)
[2017-08-23] MEDS ORDERED: ONDANSETRON HCL 4 MG ORAL DISINTEGRATING TAB PO PRN (22:45)
[2017-08-24] MEDS ORDERED: TRAMADOL HCL 50 MG TAB PO PRN
[2017-08-24] MEDS ORDERED: TRAMADOL HCL 50 MG TAB PO SCH
[2017-08-24] MEDS: SODIUM CHLORIDE 0.9% 1000ML 1,000 ML IV SCH ×2 (03:05→09:25)
[2017-08-24] MEDS ORDERED: LEVOTHYROXINE SODIUM 100 MCG TAB PO SCH (06:00)
[2017-08-24 06:33] LABS: BASOPHILS % 0.1 % (0.0-1.0); HEMOGLOBIN 8.9 g/dL (12.0-16.0); LYMPHOCYTES # (AUTO) 1.3 (1.0-3.2); LYMPHOCYTES % 11.2 % (18.0-39.1); MEAN CORPUSCULAR HEMOGLOBIN 31.1 pg (28-32); MEAN CORPUSCULAR HGB CONC 34.2 g/dL (31-35); MEAN CORPUSCULAR VOLUME 90.9 fL (81-99); MONOCYTES # (AUTO) 0.4 (0.2-0.8); MONOCYTES % 3.4 % (4.4-11.3); NEUTROPHILS # (AUTO) 9.8 (2.1-6.9); NEUTROPHILS % 84.8 % (38.7-80.0); PLATELET COUNT 275 x10e3/uL (140-360); RED BLOOD COUNT 2.86 x10e6/uL (3.6-5.1); RED CELL DISTRIBUTION WIDTH 22.5 % (11.7-14.4)
[2017-08-24 07:15] LABS: ALANINE AMINOTRANSFERASE 10 IU/L (0-55); ALBUMIN/GLOBULIN RATIO 0.9 (0.8-2.0); ALKALINE PHOSPHATASE 126 IU/L (40-150); ANION GAP 13.3 mmol/L (8-16); BLOOD UREA NITROGEN 15 mg/dL (7-26); BUN/CREATININE RATIO 18 (6-25); CALCIUM 9.5 mg/dL (8.4-10.2); CARBON DIOXIDE 22 mmol/L (22-29); CHLORIDE 106 mmol/L (98-107); CREATININE, SERUM 0.84 mg/dL (0.57-1.11); EST GLOMERULAR FILTRATION RATE > 60 ML/MIN (60-); GLUCOSE 104 mg/dL (74-118); POTASSIUM 3.3 mmol/L (3.5-5.1); SODIUM 138 mmol/L (136-145)
[2017-08-24] MEDS ORDERED: PANTOPRAZOLE SOD 40 MG TABEC PO SCH (07:45)
[2017-08-24] MEDS ORDERED: ACETAMINOPHEN 325 MG TAB PO PRN (07:45)
[2017-08-24] MEDS ORDERED: CEFTRIAXONE SOD 1 GM/NS 50 ML 50 ML IV SCH (07:45)
[2017-08-24] MEDS ORDERED: FUROSEMIDE INJ 10 MG/ML 2 ML VIAL IV PRN (08:00)
[2017-08-24] MEDS ORDERED: SODIUM CHLORIDE 0.9% 250ML 250 ML IV ONE (08:00)
[2017-08-24 08:15] LABS: ANISOCYTOSIS MODERATE; ELLIPTOCYTE, RBC SLIGHT; MICROCYTOSIS SLIGHT; PLATELET ESTIMATE ADEQUATE; PLATELET MORPHOLOGY COMMENT NORMAL; RBC MORPHOLOGY COMMENT ABNORMAL; TARGET CELLS FEW
[2017-08-24] MEDS ORDERED: CEFTRIAXONE SOD 1 GM VIAL IV SCH (09:00)
[2017-08-24] MEDS ORDERED: LORATADINE 10 MG TAB PO SCH (09:00)
[2017-08-24] MEDS ORDERED: FLUCONAZOLE 100 MG TAB PO SCH (09:00)
[2017-08-24] MEDS ORDERED: MEGACE 400MG/ 10ML CUP PO SCH (09:00)
[2017-08-24] MEDS ORDERED: FAMOTIDINE 20 MG TAB PO SCH (09:00)
[2017-08-24] MEDS ORDERED: CITALOPRAM HYDROBROMIDE 20 MG TAB PO SCH (09:00)
[2017-08-24] MEDS ORDERED: OYST-CAL-D 500MG TABLET PO SCH (09:00)
[2017-08-24 12:00] LABS: HEMATOCRIT 28.6 % (34.2-44.1); HEMOGLOBIN 9.2 g/dL (12.0-16.0)
[2017-08-24] MEDS ORDERED: POTASSIUM CHLORIDE 20MEQ/100ML 200 ML IV ONE (12:00)
--- NOTE | 2017-08-24 13:58 | History and Physical ---
DATE OF SERVICE: 08/24/2017 PRIMARY CARE PHYSICIAN: Dr. Woody Beltran. HISTORY OF PRESENT ILLNESS: The patient's is at the bedside and states that the patient has been having problems since the of the year. He states that her magnesium was low and was increased to 2 pills a day, which caused severe diarrhea for 4 days. The patient then went to [facility], but the care there was limited, and she was wheeled over across the street to [facility] for 6 days. She then went home for 1 day after her potassium and magnesium were replaced intravenously. She subsequently went to [facility] in [facility] for 6 days and then home for 6 days. Then she returned to [facility] for 11 days and was discharged from there to [facility] for 6 weeks. Yesterday she had an appointment with Dr. Lozano with gastroenterology for evaluation for possible PEG tube placement because she has not been eating well. At the office she felt dizzy, weak, confused. Apparently she has been very confused over the past several weeks and had a fast onset. She was subsequently transferred via ambulance to [facility] for evaluation. In the emergency room, she has been started on Rocephin for urinary tract infection and given IV fluids, normal saline at 126 mL an hour for dehydration. She is currently seen in the emergency room in bed 7. PAST MEDICAL HISTORY: Multiple myeloma for 3 years. Asthma, diabetes mellitus, hypothyroidism. She does not take insulin for her diabetes, only metformin. PAST SURGICAL HISTORY: Cholecystectomy, hysterectomy, tonsillectomy, stem cell transplant 2 years ago. 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 She is with 2 children. No history of tobacco use. She drank minimally socially. No past history of illicit drug use. FUNCTIONAL HISTORY: She last walked with a cane and/or rolling walker in June. However, now she is immobile and unable to walk. FAMILY HISTORY: The patient was adopted. She does not know her biological father. Her mother had kidney failure. Her grandmother had uterine cancer. ALLERGIES: IBUPROFEN AND REVLIMID, WHICH IS A CANCER DRUG. REVIEW OF SYSTEMS GENERAL: The patient complains of fatigue and malaise. Denies any fever or chills. HEENT: She complains of headache. Denies any current dizziness. Denies any visual complaints. CARDIOVASCULAR: Denies any chest pain or palpitations. No syncope, perhaps some near syncope in Dr. Lozano's office. PULMONARY: Denies any pleuritic chest pain. No cough. She does complain of shortness of breath. No hemoptysis. GASTROINTESTINAL: Denies vomiting, but she does have nausea with recent diarrhea. No hematemesis. GENITOURINARY: No complaints of dysuria, frequency or urgency. MUSCULOSKELETAL: No complaints of back pain or joint pain at present. ENDOCRINE: Positive for diabetes. HEMATOLOGY: Denies any recent bleeding or bruising. 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 NEUROLOGIC: Denies any focal weakness, numbness, tingling or seizures. PHYSICAL EXAMINATION VITAL SIGNS: Temperature 98.6, heart rate 114, blood pressure 127/87. Respiratory rate 22. Oxygen saturation 98%. Weight 200 pounds, BMI 34.32. GENERAL: The patient is lying supine on a stretcher. She appears very pale, debilitated, weak, slow to answer questions. HEENT: Pupils are equal, round and reactive to light. Extraocular eye movements intact. Oropharynx is clear. Atraumatic. Normocephalic. NECK: Supple. No lymphadenopathy, thyromegaly, or JVD. CARDIOVASCULAR: Rhythm is regular without murmur. Per telemetry, normal sinus rhythm. The patient has normal saline at 125 mL an hour into the left external jugular line. LUNGS: Air entry bilaterally diminished in the bases. No wheezing, crackles or rhonchi. ABDOMEN: Obese, soft, nontender. Bowel sounds positive times 4 quadrants. BACK: No costovertebral angle tenderness. EXTREMITIES: No pitting edema. No clubbing, cyanosis or marked swelling. No signs or symptoms of DVT. INTEGUMENTARY: No jaundice. Skin is warm and dry. No rash noted. She has a stage-2 sacral decubitus ulcer that extends to the buttocks and perianal area. LABORATORY DATA: The patient arrived yesterday at 1545. The WBCs were 14.42, hemoglobin 11, hematocrit 33.5, platelets 298. Neutrophils 93.1%, lymphocytes 3.6%, monocytes 2.6%, eosinophils 0. Sodium 136, potassium 3.6, chloride 99, CO2 17, creatinine 1.13 and BUN of 15 for a GFR of 47. Glucose 250, calcium 10.5, phosphorus 5.0, magnesium 1.6, total bilirubin 0.9. AST 22, ALT 12, alkaline phosphatase 177, total protein 5.1, albumin 2.3. Urinalysis showed trace amount of protein, trace amount of blood, 2+ bilirubin, 2+ leukocyte esterase, 11-20 RBCs, 21-50 WBCs, a few epithelial cells, many bacteria, a few mucus. C. difficile toxin A and B were collected yesterday, and the results are pending. Today, the stool for occult blood was positive. WBC 11.6, hemoglobin 8.9, hematocrit 26, platelets 275, neutrophils 84.8%, lymphocytes 11.2%, monocytes 3.4%, eosinophils 0. Sodium 138, potassium 3.3, chloride 106, CO2 22, BUN 15, anion gap 13.3. Creatinine 0.84 and BUN 15 for a GFR greater than 60. Glucose 104, calcium 9.5, total bilirubin 0.6, AST 19, ALT 10, alkaline phosphatase 126, total protein 4.3, albumin 2.0. Blood cultures collected today and results are pending. No chest x-ray noted since admission. ASSESSMENT AND PLAN 1. Dehydration. Continue IV hydration with normal saline at 125 mL an hour. 2. Diarrhea, rule out Clostridium difficile colitis. Awaiting C. diff results. Continue with IV hydration. 3. Anemia with positive fecal occult blood test, rule out gastrointestinal bleed. Another H and H have been ordered; however, the patient and have requested to be transferred to [facility] where they are reportedly familiar with her. The case was discussed with Dr. Hanna. Blood transfusion is not needed at this point as her hemoglobin was 8.9. 4. Urinary tract infection. Continue Rocephin IV empirically. Will await final urine culture. 5. Hypokalemia. Magnesium yesterday was within normal limits. Will go ahead and give repletion. 6. Multiple myeloma times 3 years. Supportive care. Currently in the process of possible transfer to [facility]. 7. Hypoalbuminemia. Continue to encourage a clear liquid diet. 8. Transaminitis, resolved. Alkaline phosphatase has improved. 9. Stage-2 sacral and buttocks perianal wound. Continue wound care. Will order wound healing supplements, except for magnesium given her recent history of diarrhea. 10. Severe protein calorie malnutrition. Patient was meeting with Dr. Lozano yesterday to discuss possible PEG tube placement. We may continue with this plan if there is not an accepting physician at [facility]. 11. Debility. Supportive care. 12. Tinea corporis. Monitor. 13. Hypothyroidism. Continue levothyroxine. 14. Morbid obesity. Monitor. 15. Prophylaxis. Continue Protonix for peptic ulcer disease prophylaxis and SCDs for DVT prophylaxis. DISPOSITION: There is a Dr. Lopez covering for Dr. Chapin at [facility]. Dr. Hanna will likely be giving a doc-to-doc report, and the patient will likely transfer to [facility]. Dictated by: Ian Kapadia NP Job#: [id number]
--- NOTE | 2017-08-24 15:20 | Discharge Summary ---
PCP: Dr. Woody Beltran CONSULTS: Dr. Prashant Lozano PERTINENT HISTORY AND PHYSICAL FINDINGS: According to the patient's , the patient has been having problems since the beginning of the year. She had an increase in her magnesium medication, which led to severe diarrhea which she had for 4 days. Was seen at [facility]. However, required further care and was wheeled across the street to [facility] and stayed there for 4 days. Received potassium and magnesium intravenously while there. Then according to the , the patient went to [facility] for 6 days. Was home for 6 days and then went to [facility] again at [facility] for 11 days. She has been [facility] for the last 6 weeks. She had an appointment with Dr. Prashant Lozano yesterday for evaluation for possible PEG tube placement due to not eating for weeks. She became dizzy and had severe weakness. Was subsequently transferred via ambulance to [facility] emergency room. She had fast onset of confusion, but has been confused for several weeks. Since admission to [facility], she has been receiving IV antibiotics, intravenous fluids due to dehydration with urinary tract infection. Please see history and physical for past surgical history, social history, functional history, and family history. ADMITTING DIAGNOSES 1. Dehydration. 2. Diarrhea, rule out Clostridium difficile colitis. 3. Anemia with positive fecal occult blood test, rule out gastrointestinal bleed. 4. Urinary tract infection. 5. Hypokalemia. 6. Multiple myeloma. 7. Hypoalbuminemia. 8. Transaminitis, resolved. 9. Stage 2 decubitus ulcer on sacrum, buttocks and perianal area. 10. Severe protein calorie malnutrition. 11. Debility. 12. Tinea corporis. 13. Hypothyroidism. 14. Morbid obesity. DISCHARGE DIAGNOSES 1. Dehydration. 2. Diarrhea, rule out Clostridium difficile colitis. 3. Anemia with positive fecal occult blood test, rule out gastrointestinal bleed. 4. Urinary tract infection. 5. Hypokalemia. 6. Multiple myeloma. 7. Hypoalbuminemia. 8. Transaminitis, resolved. 9. Stage 2 decubitus ulcer on sacrum, buttocks and perianal area. 10. Severe protein calorie malnutrition. 11. Debility. 12. Tinea corporis. 13. Hypothyroidism. 14. Morbid obesity. History and physical was completed earlier this morning. The patient will be leaving via ambulance to [facility]. Please see history and physical for pertinent laboratory and diagnostic data. The patient is currently on a clear liquid diet. Activity level as tolerated. However, it is noted that the patient was last able to walk in June. Dr. Hanna has given Dr. Wallace report with a Dr. Lopez who is covering for Dr. Chapin at [facility]. Potassium chloride 40 mEq was administered intravenously. Followup hemoglobin and hematocrit was done around noon. It was 9.2 and 28.6. C. difficile toxin is still pending. Family is aware of transfer, and had requested the transfer. Please see history and physical for review of systems and physical examination. DICTATED BY ROBERT CAMPOS NP MICAH HANNA MD Job#: [id number] HI
== END 2017-08-24 14:01 | disposition designated cancer center or children's hospital (05) ==
LOC: ER 14:45 → UNDOADMIN 20:05 → ERHOLD 20:05
DX: R11.2 Nausea with vomiting, unspecified (principal); R19.7 Diarrhea, unspecified; R53.1 Weakness; E86.0 Dehydration; R10.84 Generalized abdominal pain; C90.00 Multiple myeloma not having achieved remission; L89.892 Pressure ulcer of other site, stage 2; B35.4 Tinea corporis
CPT/HCPCS: 36415; 80053; 81001; 82270; 83735; 84100; 85014; 85018; 85025; 86850; 86870; 86880; 86900; 86905; 87040; 87045; 87071; 87186; 87205; 96360; 99001; 99284; J0696; J1450; J2405; J3480; J7030 ×2; 87493